=== PATIENT | female | born 1935 | race Caucasian/White ===

== ENCOUNTER → 2025-04-27 | Outpatient (CLI) | payer OTHER ==
--- NOTE | 2025-04-27 15:50 | HMCIMG ---
Exam: NONCONTRAST CT BRAIN REASON: Unspecified injury of head, subsequent encounter. COMPARISON: None. TECHNIQUE: Images are obtained from vertex to the skull base. The exam was performed without IV contrast. FINDINGS: There is normal appearing brain parenchyma. There are no focal mass lesions. There is is no evidence of intracranial hemorrhage or acute stroke. There is global atrophy with periventricular ischemic white matter changes. Ventricles and sulci appear normal. Posterior fossa and brainstem structures are unremarkable. Paranasal sinuses and remaining extracranial soft tissues appear normal as well. IMPRESSION: 1. No acute intracranial process 2.. Global atrophy with periventricular ischemic white matter changes. CT was performed with one or more following dose reduction techniques: automated exposure control, adjustment of the mA and kv according to patient's size, or use of a iterative reconstruction technique.
== END | disposition home or self-care (01) ==
LOC: RAH 14:17
PROVIDERS: ATTEND Physician Assistant Medical
DX: S09.90XD Unspecified injury of head, subsequent encounter (principal); I67.82 Cerebral ischemia; G31.9 Degenerative disease of nervous system, unspecified; X58.XXXD Exposure to other specified factors, subsequent encounter
CPT/HCPCS: 70450